=== PATIENT | male | born 1955 | race Caucasian/White ===

== ENCOUNTER → 2018-05-10 11:12 | Outpatient (CLI) | payer BC, SELFPAY ==
--- NOTE | 2018-05-10 11:16 | VDLE_ITS ---
Reason For Study: BLE edema L>R RIGHT LEFT GSV is normal. GSV is normal. CFV is compressible, spontaneous, phasic, CFV is compressible, spontaneous, phasic, competent and demonstrates normal competent, and demonstrates normal augmentation. augmentation. FV is compressible, spontaneous, phasic, FV is compressible, spontaneous, phasic, competent and demonstrates normal competent and demonstrates normal augmentation. augmentation. POP V is compressible, spontaneous, phasic, POP V is compressible, spontaneous, phasic, competent and demonstrates normal competent and demonstrates normal augmentation. augmentation. T/P Trunk is compressible. T/P Trunk is compressible. PTV is compressible. PTV is compressible. RT PerV is compressible. LT PerV is compressible. Procedure Exam performed in department. The exam was diagnostic. A preliminary report was called and/or faxed to DR. Alegria @ [phone] @ 11:40 am. Interpretation Summary Deep veins of the lower extremities are bilaterally patent and compressible segmentally. There is no evidence of deep vein thrombosis on either side. Valvular competence appears intact within the proximal deep venous systems bilaterally. The greater saphenous veins appear bilaterally patent and compressible segmentally. Ordering Physician: Efrain Alegria Referring Physician: Efrain Alegria Performed By: Kath Montiel, NATALIECS, RVT
== END ==
PROVIDERS: Family Provider Family Medicine; PCP Family Medicine; Visit Provider Family Medicine
DX: R60.0 Localized edema (principal)
CPT/HCPCS: 93970

== ENCOUNTER → 2018-10-09 09:22 | Outpatient (CLI) | payer BC, SELFPAY ==
--- NOTE | 2018-10-09 09:25 | US_ITS ---
STUDY: RENAL ULTRASOUND - COMPLETE REASON FOR EXAM: Male, 63 years old. TECHNIQUE: Ultrasound evaluation of the kidneys was performed with real-time and static stephenson-scale imaging. COMPARISON: None. FINDINGS: RIGHT KIDNEY: Normal location of the right kidney, which is normal in size. The right kidney measures 11.1 x 6.1 x 5.8 cm. There is a normal cortex of the right kidney. The renal cortex measures 1.6 cm. There is no right renal mass but there is 3.5 x 2.9 x 3.3 cm cyst involving the inferior medial aspect. There are no right renal calculi. There is no right hydronephrosis. DISTAL RIGHT URETER: There is non-visualization of the distal right ureter. There is no demonstrated right ureterovesical junction calculus. There is a visualized right ureteral jet. LEFT KIDNEY: Normal location of the left kidney, which is normal in size. The left kidney measures 11.1 x 6.4 x 5.7 cm. There is a normal cortex of the left kidney. The renal cortex measures 1.7 cm. There is no left renal mass or cyst. There are no left renal calculi. There is no left hydronephrosis. DISTAL LEFT URETER: There is non-visualization of the distal left ureter. There is no demonstrated left ureterovesical junction calculus. There is a visualized left ureteral jet. AORTA: There is no elongation or tortuosity of the abdominal aorta. Aorta measures: Proximal cm. Middle cm. Distal cm. Aorta measure transversely: Proximal cm. Middle cm. Distal cm. There is no demonstrated aneurysm.. I.V.C.: The IVC is patent. BLADDER: The distended urinary bladder has a volume of 111 ml. The empty urinary bladder has a volume of ml. There is a normal wall thickness of the distended urinary bladder. The process is enlarged causing indentation of the floor of the urinary bladder. US/Kidney and Bladder IMPRESSION: Negative ultrasound of the abdomen except for small cyst in the right kidney and enlarged prostate. Electronically Signed: Hilda Pool, at 16:18 EST Tel , Service support ,
--- NOTE | 2018-10-09 10:10 | RAD_ITS ---
STUDY: X-RAY - LUMBAR SPINE REASON FOR EXAM: Male, 63 years old. TECHNIQUE: 6 view(s) of the lumbar spine were obtained. COMPARISON: None FINDINGS: The vertebral bodies are of normal height with is straightening of the normal lumbar lordosis. The disc space between L1-2 is maintained. There is mild narrowing at the level of L2-3 with anterior osteophyte formation. There is markedly narrowing of the intervertebral disc at L3-4 with slight retrolisthesis of L3 on L4. With osteophyte formation seen at this level. There is narrowing at L4-5 level. There are disc space at L5-S1 is maintained. The spinous and transverse processes as well as the pedicles are intact. RAD/L/S Spine Min 4 Views IMPRESSION: Straightening of the lumbar lordosis with degenerative disc disease and narrowing at the levels described above with retrolisthesis of L3 on L4. Electronically Signed: Hilda Pool, at 15:56 EST Tel , Service support ,
== END ==
PROVIDERS: Family Provider Internal Medicine; PCP Internal Medicine; Referring Provider Internal Medicine; Visit Provider Internal Medicine
DX: N28.1 Cyst of kidney, acquired (principal); N40.0 Benign prostatic hyperplasia without lower urinary tract symptoms; R31.9 Hematuria, unspecified; M51.36 Other intervertebral disc degeneration, lumbar region
CPT/HCPCS: 72110; 76770

== ENCOUNTER → 2018-12-02 12:36 | Outpatient (CLI) | payer SELFPAY ==
--- NOTE | 2018-12-02 12:39 | CT_ITS ---
STUDY: CT CHEST WITHOUT CONTRAST REASON FOR EXAM: Male, 63 years old. Calcium scoring examination. Radiology over read examination. RADIATION DOSAGE (If Supplied By Facility): CTDIvol = ( 12.19 ) mGy, DLP = ( 292.55 ) mGycm TECHNIQUE: Transaxial imaging was performed without the administration of intravenous contrast material. Individualized dose optimization techniques were used for this CT. COMPARISON: Comparison is made with prior study dated August 19, 2015. FINDINGS: A left-sided pacemaker is seen. The lungs are normal. There is no demonstrated pleural abnormality. There are calcifications of the coronary arteries. There are multiple small lymph nodes within the mediastinum, which are normal in size and morphology most compatible with reactive lymph hyperplasia. Normal hilar regions. Normal unenhanced pulmonary arteries. There is atherosclerotic calcification of the aortic arch aortic arch . Normal osseous structures. There is no demonstrated abnormality of the visualized upper abdomen. CT/Limited Chest CT w/CCTA IMPRESSION: Coronary artery calcification. Electronically Signed: Rich Milton MD at 14:32 EST , Service support ,
[2018-12-02 13:08] VITALS: PULSE 54; RESP 16; O2SAT 100; BMI 33.3
--- NOTE | 2018-12-02 15:20 | CA.SCORE ---
Calcium Scoring Date of Study:: 12/02/18 Coronary Calcium Scoring: Coronary calcium score. Procedure: High-resolution computed tomographic imaging of the chest was performed on 12/02/2018 with particular attention paid to the coronary arteries. Images from the examination were analyzed for the presence and extent of coronary artery calcification using the coronary calcium quantification software. The patient tolerated the procedure well there were no complications. The results of the coronary consultation analysis are provided below. Coronary artery Left main score 5.5 Left anterior descending artery score 0 Left circumflex artery score 18 Right coronary artery score 13 Total Agatston score 37 The above places the patient between the 25th and 50th percentile ranking for his age and sex. Interpretation: The above is suggestive of mild plaque burden indicating mild or minimal coronary artery stenosis.
== END ==
PROVIDERS: Family Provider Internal Medicine; PCP Internal Medicine; Referring Provider Internal Medicine; Visit Provider Internal Medicine
DX: E78.5 Hyperlipidemia, unspecified (principal); Z82.49 Family history of ischemic heart disease and other diseases of the circulatory system
CPT/HCPCS: 75571; 76380

== ENCOUNTER → 2018-12-11 12:46 | Outpatient (CLI) | payer BC, SELFPAY ==
[2018-12-02 13:08] VITALS: BMI 33.3
--- NOTE | 2018-12-11 12:57 | ECHOCS_ITS ---
Reason For Study: Murmur Procedure This was a 2D Doppler, Color Flow transthoracic echocardiogram. Exam performed in department. Left Ventricle Normal size and thickness. The estimated ejection fraction is 60 %. Normal diastology for age. No regional wall motion abnormalities noted. Right Ventricle Mildly dilated right ventricle. Normal systolic function. Atria The left atrium is moderately enlarged. The right atrium is moderately enlarged. Normal atrial septum. Mitral Valve Mild focal mitral valve thickening. Moderate (2+) anteriorly directed mitral valve insufficiency. Tricuspid Valve Normal tricuspid valve. Trivial tricuspid valve insufficiency. Right ventricular systolic pressure estimated to be 29 mmHg. Aortic Valve Normal aortic valve. Trisinus/trileaflet aortic valve. Pulmonic Valve Normal pulmonic valve. Great Vessels Normal aortic root. Normal arch. Normal inferior vena cava. Inferior vena cava collapse with sniff. Pericardium/Pleural No pericardial effusion. Medication 22 gauge I.V. with prn adaptor inserted into right arm. Diluted definity 4ml given slow IV push to enhance endocardial definition. MMode/2D Measurements & Calculations LVIDd: 6.0 cm IVSd: 1.3 cm Ao root diam: 3.8 cm LVIDs: 4.7 cm LVPWd: 1.1 cm LA dimension: 4.4 cm RVDd: 3.8 cm FS: 21.1 % LAV(MOD-bp): 100.7 ml LA A4 area: 29.5 cm2 RA A4 area: 22.1 cm2 LAV(MOD-bp) Indexed: 40.6 ml/m2 LAV(MOD-sp2): 92.7 ml LAV(MOD-sp4): 102.0 ml Time Measurements MV dec time: 0.24 sec Doppler Measurements & Calculations MV E max jourdan: 97.3 cm/sec Lat Peak E' Jourdan: 13.1 cm/sec Med Peak E' Jourdan: 6.9 cm/sec MV A max jourdan: 61.2 cm/sec E/E' lat: 7.4 E/E' med: 14.1 MV E/A: 1.6 MV V2 max: 120.4 cm/sec MV P1/2t max jourdan: 117.5 cm/sec Ao V2 max: 132.0 cm/sec MV max P.8 mmHg MV P1/2t: 123.1 msec Ao max P.0 mmHg MV V2 mean: 60.7 cm/sec MV dec slope: 279.6 cm/sec2 Ao V2 mean: 86.2 cm/sec MV mean P.8 mmHg Ao mean P.4 mmHg MV V2 VTI: 43.0 cm MVA(P1/2t): 1.8 cm2 Ao V2 VTI: 26.6 cm LV V1 max: 76.0 cm/sec MR max jourdan: 547.0 cm/sec PA V2 max: 83.8 cm/sec LV V1 max P.3 mmHg MR max P.7 mmHg LV V1 mean P.91 mmHg MR mean jourdan: 427.5 cm/sec LV V1 mean: 42.8 cm/sec MR mean P.6 mmHg LV V1 VTI: 17.4 cm MR VTI: 181.1 cm TR max jourdan: 243.1 cm/sec TR max P.6 mmHg Interpretation Summary The estimated ejection fraction is 60 %. Normal diastology for age. The left atrium is moderately enlarged. The right atrium is moderately enlarged. Moderate (2+) anteriorly directed mitral valve insufficiency. Trivial tricuspid valve insufficiency. Right ventricular systolic pressure estimated to be 29 mmHg. Compared to echo report dated 02/27/2008, LV function has remained the same. RV is now mildly dilated. The study was technically difficult. Contrast injection was performed. Ordering Physician: Rachelle Morejon Referring Physician: Rachelle Morejon Performed By: Allan Damon RCS
== END ==
PROVIDERS: Family Provider Internal Medicine; PCP Internal Medicine; Referring Provider Internal Medicine; Visit Provider Internal Medicine
DX: R01.1 Cardiac murmur, unspecified (principal)
CPT/HCPCS: 93306; Q9957; A4216; C8929

== ENCOUNTER → 2018-12-30 08:51 | Outpatient (CLI) | payer BC, SELFPAY ==
[2018-12-24 08:38] VITALS: BMI 33.8
[2018-12-30 10:02] LABS: AST(SGOT) 19 U/L (15-37); Alanine Aminotransfer ALT/SGPT 22 U/L (16-61); Albumin, Serum 3.7 g/dL (3.2-5.0); Alkaline Phosphatase 83 U/L (45-117); Bilirubin, Direct 0.15 mg/dL (0.00-0.30); Cholesterol 121 mg/dL (200); High Density Lipoprotein 42 mg/dL; Protein, Total 6.7 g/dL (6.4-8.2); Triglycerides 95 mg/dL; Very Low Density Lipoprotein 19 mg/dL (5-40)
== END ==
PROVIDERS: Family Provider Internal Medicine; PCP Internal Medicine; Referring Provider Internal Medicine Cardiovascular Disease; Visit Provider Internal Medicine Cardiovascular Disease
DX: E78.5 Hyperlipidemia, unspecified (principal); R79.82 Elevated C-reactive protein (CRP); R93.1 Abnormal findings on diagnostic imaging of heart and coronary circulation
CPT/HCPCS: 36415; 80061; 80076

== ENCOUNTER → 2019-02-05 11:42 | Outpatient (CLI) | payer BC, SELFPAY ==
[2018-12-24 08:38] VITALS: BMI 33.8
--- NOTE | 2019-02-05 12:26 | STRESSREP ---
Stress Test Report Treadmill EKG summary: Resting EKG: Normal sinus rhythm, PVC, normal axis, normal intervals, no evidence of previous myocardial infarction. Treadmill EKG: The patient exercise according to a Chapo protocol for 9 minutes and 0 seconds achieving a maximum workload of 10.10 METS. Resting heart rate was initially 57 beats a minute and leandra to maximum 1 5 0 bpm which represents 96% of the maximal age-predicted heart rate. Resting blood pressure was 140/80 and leandra to maximum 180/72. Test was terminated due to leg discomfort. During exercise the patient's heart rate increased as expected. The patient had no dynamic EKG changes to suggest ischemia. Patient had rare PVCs noted. Conclusions: Normal, adequate, treadmill EKG. Negative for ischemia by EKG criteria. No anginal symptoms noted. Appropriate blood pressure response to exercise. Rare PVCs noted during recovery. Patient tolerated the procedure well. No complications.
== END ==
PROVIDERS: Family Provider Internal Medicine; PCP Internal Medicine; Referring Provider Internal Medicine Cardiovascular Disease; Visit Provider Internal Medicine Cardiovascular Disease
DX: I51.7 Cardiomegaly (principal); E78.5 Hyperlipidemia, unspecified; R79.82 Elevated C-reactive protein (CRP); Z86.718 Personal history of other venous thrombosis and embolism; Z86.79 Personal history of other diseases of the circulatory system; Z82.49 Family history of ischemic heart disease and other diseases of the circulatory system
CPT/HCPCS: 93017

== ENCOUNTER → 2019-09-29 09:24 | Outpatient (CLI) | payer BC, SELFPAY ==
[2019-08-29 11:53] VITALS: BMI 33.8
[2019-09-29 11:47] LABS: AST(SGOT) 18 U/L (15-37); Alanine Aminotransfer ALT/SGPT 24 U/L (16-61); Albumin, Serum 3.6 g/dL (3.2-5.0); Alkaline Phosphatase 87 U/L (45-117); Bilirubin, Direct 0.13 mg/dL (0.00-0.30); Cholesterol 118 mg/dL (200); Globulin 3.3 g/dL (2.2-4.2); High Density Lipoprotein 47 mg/dL; Protein, Total 6.9 g/dL (6.4-8.2); Triglycerides 76 mg/dL; Very Low Density Lipoprotein 15 mg/dL (5-40)
== END ==
PROVIDERS: Family Provider Internal Medicine; PCP Internal Medicine; Referring Provider Internal Medicine Cardiovascular Disease; Visit Provider Internal Medicine Cardiovascular Disease
DX: E78.00 Pure hypercholesterolemia, unspecified (principal)
CPT/HCPCS: 36415; 80061; 80076

== ENCOUNTER 2020-06-26 21:24 | Inpatient (IN) | payer BC, MEDICARE, SELFPAY ==
[2019-08-29 11:53] VITALS: BMI 33.8
[2020-06-26 21:24] VITALS: BP 119/64; PULSE 122; RESP 18; TEMP 37.1; O2SAT 99; BMI 33.0
--- NOTE | 2020-06-26 21:28 | EKG12_ITS ---
Test Reason : PALPITATIONS Blood Pressure : / mmHG Vent. Rate : 124 BPM Atrial Rate : 288 BPM P-R Int : 000 ms QRS Dur : 090 ms QT Int : 304 ms P-R-T Axes : 000 018 010 degrees QTc Int : 436 ms Atrial flutter with variable A-V block Abnormal ECG When compared with ECG of 19-AUG-2015 12:57, Atrial flutter has replaced Sinus rhythm Vent. rate has increased BY 55 BPM Nonspecific T wave abnormality now evident in Lateral leads Confirmed by JONATHAN KAISER, NOEL ([id number]), newspaper copy editor EMIL GARZA ([id number]) on 07/13/2020 12:52:50 PM Referred By: Candie Downs Confirmed By:NOEL CASTILLO MD
[2020-06-26 21:34] VITALS: PULSE 129
--- NOTE | 2020-06-26 21:47 | RAD_ITS ---
STUDY: X-RAY CHEST REASON FOR EXAM: Male, 65 years old. mitral valve surgery 4 days ago, discharged today and Apple watch is telling him he has a high heart rate TECHNIQUE: Frontal view of the chest COMPARISON: August 19 2015 FINDINGS: There are sternotomy wires and mitral annular repair. The lungs are clear and expanded. There is no demonstrated pleural abnormality. Normal size heart. Normal mediastinum and hussain. Normal visualized pulmonary arteries. Normal visualized aortic arch and descending thoracic aorta. Normal visualized thoracic spine. Normal visualized ribs, clavicles, and shoulders. There is no demonstrated abnormality of the visualized soft tissue structures of the upper abdomen. RAD/Chest 1 View (Portable) IMPRESSION: No acute cardio pulmonary disease. Prior sternotomy. Electronically Signed: Emmanuelle Bear, at 22:21 EDT Tel , Service support ,
[2020-06-26] MEDS: dilTIAZem 25 MG/5 ML Vial 20 MG IV BOLUS (21:51)
[2020-06-26 21:52] VITALS: BP 113/96; PULSE 124; RESP 20; O2SAT 95
[2020-06-26 21:59] LABS: Absolute Neutrophil Count 4.7 X10^3/uL (2.0-7.7); Basophil# 0.02 X10^3/uL; Basophil% 0.3 % (0-1); Eosinophil# 0.18 X10^3/uL; Eosinophils% 2.7 % (0-5); Hematocrit 34.1 % (40-54); Hemoglobin 10.9 g/dL (13.0-16.5); Mean Corpuscular Hgb 26.7 pg (27.0-32.0); Mean Corpuscular Volume 83.6 fL (80-94); Mean Platelet Vol. 9.6 fl (6.2-12.0); Monocyte# 0.57 X10^3/uL; Monocyte% 8.5 % (0-10); NRBC Flagged by Analyzer 0 % (0-5); Neutrophil # 4.69 X10^3/uL (2.7-7.7); Neutrophil % 70.2 % (47-70); Platelet Count 165 K/mm3 (150-450); RBC Distribution Width CV 13.8 % (11.6-14.6); RBC Distribution Width SD 42.4 fl (35.1-43.9); Red Blood Count 4.08 M/mm3 (4.6-6.2); White Blood Count 6.7 K/mm3 (4.4-11.0)
[2020-06-26 22:11] LABS: Anion Gap 5 (5-15); BUN 19 mg/dL (7-18); BUN/Creat Ratio 16.2 RATIO (10-20); Chloride 106 mmol/L (98-107); Creatinine, Serum 1.17 mg/dL (0.70-1.30); EST Glomerular Filtration Rate 66 mL/min (>60); Est Glom Filt Rate - Afr Amer 80 mL/min (>60); Estimated Creatinine Clearance 73.23 ml/min; Glucose 112 mg/dL (74-106); Potassium 4.2 mmol/L (3.5-5.1); Sodium Level 138 mmol/L (136-145)
--- NOTE | 2020-06-26 22:39 | ED.VISSUMM ---
- ER Visit Summary Date of Service: 06/26/20 Chief Complaint: Accelerated heart rate and palpitations History of Present Illness: The patient is a 65 M status post mitral valve repair open heart surgery done [facility] on Sunday. Patient was just discharged today. He was doing well and tonight when he was wearing his apple watch it alarmed showing him that his heart rate was 142. He said he was not feeling poorly. He denies any shortness of breath or hemoptysis. He has been getting what sounds like Lovenox shots. He does have a history of prior mitral valve regurg which he had repaired earlier this week. Hypertension, high cholesterol and prior pulmonary emboli. Physical Examination: Older male no acute distress heart rate 122. Pulse ox 99% on room air no signs hypoxia. H EENT exam unremarkable. Neck nontender no JVD. Lungs clear to auscultation bilaterally. Heart tachycardic rate in 120s. Appears to be atrial flutter on the monitor. No murmur. Well-healing sternotomy incision. Dry and clean. No cellulitis. No pus. Abdomen soft nontender normal bowel sounds no peritoneal signs. Remedies moves all 4. Neurovascular intact. Calves are nontender without edema or cords. Neurologically is awake and alert with no focal motor deficits. Test Results: Chest x-ray shows a recent sternotomy. Otherwise no acute process. Heart is not significantly enlarged. There is no effusions nor CHF. KG is consistent with atrial flutter rate of about 124. No signs of UT or ischemia. CBC shows a white count of 6. Hemoglobin 10.9. Consistent with her recent surgery. Chemistries unremarkable normal creatinine and gap. Troponin is elevated at 0.926 however again he just had open heart surgery 4 days ago. I would expect his troponin is still be elevated. Emergency Department Course and Treatment: Patient with new onset atrial flutter status post recent sternotomy and mitral valve repair. Given 1 dose of Cardizem IV currently his heart rate is still atrial flutter but rate 73. He is resting comfortably. Treatment Plan: I have the clinic clinic on page discussed the patient's treatment. I think can be safely kept here overnight observed medicated and evaluated for new onset postop atrial flutter. As long as the [facility] is comfortable with that plan I will speak to the [facility] hospitalist. Disposition: Admission Impression: New onset atrial flutter with rapid ventricular rate Status post recent sternotomy for mitral valve repair surgery 4 days ago. History of hypertension, high cholesterol and prior pulmonary emboli. This note was generated with [employer] dictation software. It may contain incorrect words, spelling, and punctuation that were not noted in review of the chart prior to signing ED Disposition - Plan for ED Patient: Referrals: Rachelle Morejon MD [Primary Care Provider] -
[2020-06-26 22:51] VITALS: BP 106/59; PULSE 88; RESP 21; O2SAT 95
--- NOTE | 2020-06-26 23:15 | PCM.HP.STD ---
Problem List (1) Atrial flutter with rapid ventricular response Status: Acute (2) History of mitral valve repair Status: Chronic (3) Personal history of pulmonary embolism Status: Chronic (4) Personal history of other venous thrombosis and embolism Status: Chronic (5) History of hypertension Status: Chronic Comment: Improved with diet and exercise, currently on no meds per Dr. Morejon OV 11/21/2018 (6) Hyperlipidemia Status: Chronic Qualifiers: Hyperlipidemia type: unspecified Qualified Code(s): E78.5 - Hyperlipidemia, unspecified History of Present Illness Date of Admission: 06/26/20 Chief Complaint: Irregular heart rate, tachycardia, asymptomatic The patient is a 65 y/o M w/ PMHx: Asthma not on regimen, Valvular heart disease s/p MVR, Lifestyle/diet controlled HTN, Hx PE, HLD, Allergic rhinitis who presents to the [facility] ED on 06/26/20 with history of recent mitral valve surgery Sunday prior to current presentation with discharge today from [facility] with ongoing tachycardia per his watch (started 8:07 pm) with no symptoms associated prompting eventual ED presentation for evaluation. In the ED following cardizem bolus patient HR 70-120. He notes feeling asymptomatic still. He notes his normal resting heart rate is 50-60, occasionally 40s while sleeping. He notes recent ECHO following recent MVR at [facility]. He denies any post-operative issues. Work-up in the ED included T 98.8, heart rate 122, BP 119/64, respiratory rate 18, 99% on room air, CBC with WBC 6.7, hemoglobin 10.9, platelet 165 with no market shift, BMP with BUN/creatinine 19/1.17, glucose 112, troponin 0.926, chest x-ray with no acute cardiopulmonary findings with prior sternotomy, EKG with atrial flutter with RVR. In the ED patient ministered Cardizem 20 mg IV x1. ED discussed case with [facility] CT Surgery who was amenable to his remaining at [facility]. Dr. Duque, [facility] Cardiology was also contacted per ED and case reviewed. Past Medical History Past Medical History (Chronic Problems): Chronic Problems (Last Reviewed 08/20/19 @ 16:01 by Geetha Busch) History of mitral valve repair (Chronic) Personal history of pulmonary embolism (Chronic 02/25/08) Right ventricular hypertrophy (Chronic) Per echo 12/11/2018 Bilateral enlargement of atria (Chronic) Nonrheumatic mitral (valve) insufficiency (Chronic) Moderate (2+) per echo 12/11/2018. EF 60%.RVSP 29mm hg. Personal history of other venous thrombosis and embolism (Chronic 02/25/08) History of hypertension (Chronic) Improved with diet and exercise, currently on no meds per Dr. Morejon OV 11/21/2018 Hyperlipidemia (Chronic) Medical History: Medical History (Last Reviewed 08/20/19 @ 16:01 by Geetha Busch) Elevated coronary artery calcium score (Acute) R93.1 Agatson score 37. Calcified coronaries also noted on chest CTA done 12/02/18, ord by Dr. Morejon. Personal history of pulmonary embolism (Chronic) Onset Date: 02/25/08 Z86.711 Right ventricular hypertrophy (Chronic) I51.7 Per echo 12/11/2018 Bilateral enlargement of atria (Chronic) I51.7 Nonrheumatic mitral (valve) insufficiency (Chronic) I34.0 Moderate (2+) per echo 12/11/2018. EF 60%.RVSP 29mm hg. Elevated C-reactive protein (CRP) (Acute) R79.82 Personal history of other venous thrombosis and embolism (Chronic) Onset Date: 02/25/08 Z86.718 History of hypertension (Chronic) Z86.79 Improved with diet and exercise, currently on no meds per Dr. Morejon OV 11/21/2018 Hyperlipidemia (Chronic) E78.5 Enlarged prostate N40.0 Hematuria R31.9 Allergic rhinitis J30.9 Low back pain M54.5 Allergies No Known Allergies Allergy (Verified 06/26/20 21:28) Home Medications: Ambulatory Orders Medication Instructions Recorded aspirin 81 mg tablet,delayed 81 mg PO DAILY 12/18/18 release aqetfntq-mtx-xxkhd acid 0.4 1 tab PO DAILY 12/18/18 mg-lycopene 300 mcg-lutein 250 mcg tablet probiotic PO DAILY 12/18/18 zinc 50 mg tablet 50 mg PO DAILY 12/18/18 ergocalciferol (vitamin D2) 62.5 1,000 unit PO DAILY 12/24/18 mcg (2,500 unit) capsule rivaroxaban 20 mg tablet 20 mg PO .COMPLEX #30 tab 12/24/18 Ramipril 5 mg PO DAILY 06/26/20 Rosuvastatin Calcium 10 mg PO QHS 06/26/20 Surgical History: Surgical History (Last Updated 08/29/19 @ 12:00 by Geetha Busch) History of tooth extraction K08.409 Surgical History: - - Dental surgery, recent Mitral Valve Repair. Psychiatric History: No pertinent psych hx Lives: Spouse/ Significant Other Smoking Status: Never smoker Tobacco Use: Secondhand - Noted both his parents smoked heavily. Alcohol: Occasional Drugs: None - *Family History Maternal Family History: Family History (Last Reviewed 08/20/19 @ 16:01 by Geetha Busch) Brother Thyroid disorder Brother Thyroid disorder Mother Thyroid disorder Ovarian cancer Lung cancer Sister Thyroid disorder Father Lung cancer Prostate cancer CAD (coronary artery disease), Onset Age: 50 History Items: Cancer - Lung CA, tobacco use., Pulmonary Disease Paternal Family History: Family History (Last Reviewed 08/20/19 @ 16:01 by Geetha Busch) Brother Thyroid disorder Brother Thyroid disorder Mother Thyroid disorder Ovarian cancer Lung cancer Sister Thyroid disorder Father Lung cancer Prostate cancer CAD (coronary artery disease), Onset Age: 50 History Items: Cancer - Lung and Prostate CA., Heart Disease, - Review of Systems Constitutional: Reports: Fatigue. Denies: Anorexia, Chills, Fever, Malaise, Weakness, Weight Change HEENT: Denies: Head Aches, Sinus Congestion, Sinus Drainage Cardiovascular: Reports: - - Apple Watch noted tachycardia. Denies: Chest Pain, Chest Pressure, Chest Tightness, Edema, Heaviness, Light Headedness, Orthopnea, Palpitations, Syncope Respiratory: Denies: Cough, Shortness of breath at rest, Sputum production Gastrointestinal: Denies: Abdominal Pain, Nausea, Vomiting Genitourinary: Denies: Dysuria Musculoskeletal: Denies: Joint Pain, Joint Tenderness Skin: Denies: Rash, Wounds Neurological: Denies: Numbness, Tingling, Focal weakness Psychiatric: Denies: Anxiety, Depression, Homicidal Ideations, Suicidal Ideations Hematologic/ Lymphatic: Denies: Easy Bruising, Easy Bleeding VTE Information - Inpt Only VTE Present on Admission: No VTE Mechan Device Prophylaxis: SCD's VTE Pharm Prophylaxis ordered?: Yes Patient Problems: Active and Suspected Problems (Last Reviewed 08/20/19 @ 16:01 by Geetha A Jo-Ann) Atrial flutter with rapid ventricular response (Acute) Subjective: Seated upright in ED bed, no acute distress, continues to be asymptomatic, rate mildly improved with Cardizem bolus but fluctuating. Objective: Physical Examination: General: awake, alert, oriented x 3 and cooperative, seated upright in the ED bed, no acute distress. Skin: normal color, turgor, no icterus, cyanosis except recent midline sternotomy incision, healing as well as lower distal chest tube incisions. HEENT: AT/NC, EOMI, PERRLA, MMM, no carotid bruits or JVD noted. Lungs: CTA bilaterally, moderate effort, mild decrease BL bases, no rales, ronchi or wheezing. Heart: Irregular irregular; no gallop, rub audible, see skin. Abdomen: soft, NTTP, ND, normal BS, no HSM. Extremities: no cyanosis, clubbing, or edema. Neurological: patient awake, alert, oriented x 3; cognitive function intact; pupils equally reactive to light and accomodation; cranial nerves II-XII grossly normal, moving all 4 extremities, no focal deficits, strength moderately global decrease secondary to recent interventions and acute presentation. Psychiatric: affect appears normal, no acute evidence of depressive or anxiety feelings. - Physical Exam Vitals/I&O's: Vital Signs Temp Pulse Resp BP Pulse Ox 98.8 F 88 21 H 106/59 L 95 06/26/20 21:24 06/26/20 22:51 06/26/20 22:51 06/26/20 22:51 06/26/20 22:51 Oxygen Delivery Method Room Air Weight: 264 lb 8.875 oz Body Mass Index (BMI) 33.0 Laboratory Results 06/26/20 21:42: WBC 6.7, RBC 4.08 L, Hgb 10.9 L, Hct 34.1 L, MCV 83.6, MCH 26.7 L, MCHC 32.0, RDW Std Deviation 42.4, RDW Coeff of Gayathri 13.8, Plt Count 165, MPV 9.6, Immature Gran % (Auto) 0.300, Neut % (Auto) 70.2 H, Lymph % (Auto) 18.0 L, [place] % (Auto) 8.5, Eos % (Auto) 2.7, Baso % (Auto) 0.3, Absolute Neuts (auto) 4.7, Absolute Lymphs (auto) 1.20, Nucleated RBC % 0 06/26/20 21:42: Sodium 138, Potassium 4.2, Chloride 106, Carbon Dioxide 27.0, Anion Gap 5, BUN 19 H, Creatinine 1.17, Estim Creat Clear Calc 73.23, Est GFR (MDRD) Af Amer 80, Est GFR (MDRD) Non-Af 66, BUN/Creatinine Ratio 16.2, Glucose 112 H, Calcium 9.0, Troponin I 0.926 H* Assessment/Plan All Active Problems (Last Reviewed 08/20/19 @ 16:01 by Geetha Busch) Atrial flutter with rapid ventricular response (Acute) Elevated coronary artery calcium score (Acute) Elevated C-reactive protein (CRP) (Acute) The patient is a 65 y/o M w/ PMHx: Asthma not on regimen, Valvular heart disease s/p MVR, Lifestyle/diet controlled HTN, Hx PE, HLD, Allergic rhinitis who presents to the [facility] ED on 06/26/20 with history of recent mitral valve surgery Sunday prior to current presentation with discharge today from [facility] with ongoing tachycardia per his watch with no symptoms associated prompting eventual ED presentation for evaluation. 1. New onset, Paroxsymal atrial flutter with RVR with elevated indeterminate troponin with recent open heart surgery: EKG in ED w/ atrial flutter w/ RVR. Patient administered Cardizem IV bolus in ED. Will admit to PCU, maintain on telemetry, obtain cardiac enzyme serial set, obtain magnesium level, will maintain on therapeutic lovenox, continue Cardizem drip given history of notable bradycardia given if patient converts high dose oral regimen may cause significant worsened bradycardia. Cardiology consulted per ED upon admission, pending evaluation. 2. Valvular heart disease: Status post recent mitral valve repair at [facility] with discharge on day of ED presentation secondary to asymptomatic tachycardia noted on his wristwatch. ED discussed case with [facility] surgeon who was amenable to patient remaining at [facility] for evaluation. 3. Hypertension: Given low normal BP with usage cardizem will hold ACEI, maintained on IV Cardizem drip currently, PRN IV hydralazine. 4. Hyperlipidemia: Continue home statin regimen. 5. History of asthma: Not on any regimen, encourage I-S, PRN albuterol. 6. History of pulmonary emboli: We will continue patient on therapeutic lovenox as noted. 7. DVT prophylaxis: SCDs, therapeutic lovenox which was cleared per his CT surgery. 8. CODE status: Patient GEORGIE is his was present and living will is currently in place. Discussed CODE status at length including difference between FULL code, DNR-CCA and DNR-CC status. Following discussions about the differences in these status, requested full CODE STATUS. Advanced Care Planning Face to Face Time: 16 minutes. Inpatient E&M: 59637 Init Hosp L3 Procedures: 89339 Advncd Care Plan 30 Min
[2020-06-27] VITALS (27 sets, daily range): BP systolic 105–163; BP diastolic 52–118; PULSE 55–123; RESP 11–24; TEMP 36.6–36.9; O2SAT 93–100; BMI 33.5
[2020-06-27] MEDS: Enoxaparin 120 MG/0.8 ML Syringe SC (00:50)
[2020-06-27 03:55] LABS: Absolute Lymphocyte Count 1.37 X10^3/uL (0.83-4.51); Absolute Neutrophil Count 3.8 X10^3/uL (2.0-7.7); Basophil# 0.03 X10^3/uL; Basophil% 0.5 % (0-1); Eosinophil# 0.22 X10^3/uL; Eosinophils% 3.7 % (0-5); Hematocrit 31.6 % (40-54); Hemoglobin 10.1 g/dL (13.0-16.5); Lymphocyte # 1.37 X10^3/ul (4.0); Mean Corpuscular Hgb 26.9 pg (27.0-32.0); Mean Platelet Vol. 8.9 fl (6.2-12.0); Monocyte# 0.55 X10^3/uL; Monocyte% 9.2 % (0-10); NRBC Flagged by Analyzer 0 % (0-5); Neutrophil # 3.76 X10^3/uL (2.7-7.7); Neutrophil % 63.1 % (47-70); Platelet Count 143 K/mm3 (150-450); RBC Distribution Width CV 13.7 % (11.6-14.6); RBC Distribution Width SD 42.4 fl (35.1-43.9); Red Blood Count 3.76 M/mm3 (4.6-6.2)
[2020-06-27 04:20] LABS: ALB/GLOB Ratio 0.8 RATIO (0.9-2.4); AST(SGOT) 30 U/L (15-37); Alanine Aminotransfer ALT/SGPT 40 U/L (16-61); Albumin, Serum 2.7 g/dL (3.2-5.0); Alkaline Phosphatase 60 U/L (45-117); Anion Gap 5 (5-15); BUN 17 mg/dL (7-18); BUN/Creat Ratio 15.6 RATIO (10-20); Calcium,Total 8.6 mg/dL (8.5-10.1); Chloride 105 mmol/L (98-107); Creatinine, Serum 1.09 mg/dL (0.70-1.30); EST Glomerular Filtration Rate 72 mL/min (>60); Est Glom Filt Rate - Afr Amer 87 mL/min (>60); Globulin 3.5 g/dL (2.2-4.2); Glucose 117 mg/dL (74-106); Potassium 3.8 mmol/L (3.5-5.1); Protein, Total 6.2 g/dL (6.4-8.2); Sodium Level 138 mmol/L (136-145)
--- NOTE | 2020-06-27 05:55 | EKG12_ITS ---
Test Reason : ARRYTHMIA Blood Pressure : / mmHG Vent. Rate : 061 BPM Atrial Rate : 061 BPM P-R Int : 152 ms QRS Dur : 090 ms QT Int : 382 ms P-R-T Axes : -53 021 005 degrees QTc Int : 384 ms Possible Ectopic Atrial Rhythm Nonspecific ST and T wave abnormality Abnormal ECG When compared with ECG of 27-JUN-2020 05:00, MANUAL COMPARISON REQUIRED, DATA IS UNCONFIRMED Confirmed by JONATHAN KAISER, NOEL ([id number]), order editor EMIL GARZA ([id number]) on 06/30/2020 11:41:02 AM Referred By: Candie Downs Confirmed By:NOEL CASTILLO MD
--- NOTE | 2020-06-27 08:55 | EKG12_ITS ---
Test Reason : AM EKG Blood Pressure : / mmHG Vent. Rate : 080 BPM Atrial Rate : 384 BPM P-R Int : 000 ms QRS Dur : 088 ms QT Int : 354 ms P-R-T Axes : 000 025 -08 degrees QTc Int : 408 ms Atrial flutter with variable A-V block Nonspecific T wave abnormality Abnormal ECG Confirmed by JONATHAN KAISER, NOEL ([id number]), editor dictionary EMIL GARZA ([id number]) on 06/30/2020 11:41:20 AM Referred By: Candie Downs Confirmed By:NOEL CASTILLO MD
[2020-06-27] MEDS: Aspirin E.C. 81 MG Tablet PO (09:20)
--- NOTE | 2020-06-27 10:39 | PCM.CONS.C ---
Problem List (1) Atrial flutter with rapid ventricular response Status: Acute (2) History of mitral valve repair Status: Chronic (3) Personal history of pulmonary embolism Status: Chronic (4) Nonrheumatic mitral (valve) insufficiency Status: Chronic Comment: Moderate (2+) per echo 12/11/2018. EF 60%.RVSP 29mm hg. Reason for Consult Date of Consultation: 06/27/20 Reason for Consultation: Paroxysmal atrial fibrillation post mitral valve repair History of Present Illness: The patient is a 65 year old M [was admitted through the emergency room last night because of asymptomatic atrial fibrillation with fast ventricular rate. His apple watch alerted him of heart rate in the 140. 5 days ago, patient underwent mitral valve repair at the [facility] and was discharged home 2 days ago. His cardiac history dated 3 months ago. At that time he notices that he gets short of breath on minimal exertion of sudden onset. Echocardiogram according to the patient at the [facility] showed 4+ mitral regurgitation with torn chordae. Cardiac catheterization showed insignificant coronary artery disease. He is known to have hypertension and hyperlipidemia. He is a non-smoker and drinks occasionally. He did have a history of pulmonary embolism in the past. He has been taking Xarelto prophylactically during traveling. At the moment he is only taking aspirin postoperatively. At around 9 AM this morning patient converted to normal sinus rhythm. He is still on IV Cardizem, heart rate in the 60s with occasional PVCs] Past Medical History Allergies/Adverse Reactions: Allergies No Known Allergies Allergy (Verified 06/26/20 21:28) Home Medications: Ambulatory Orders Medication Instructions Recorded aspirin 81 mg tablet,delayed 81 mg PO DAILY 12/18/18 release nmgmotdu-ntx-mkevc acid 0.4 1 tab PO DAILY 12/18/18 mg-lycopene 300 mcg-lutein 250 mcg tablet probiotic PO DAILY 12/18/18 zinc 50 mg tablet 50 mg PO DAILY 12/18/18 ergocalciferol (vitamin D2) 62.5 1,000 unit PO DAILY 12/24/18 mcg (2,500 unit) capsule rivaroxaban 20 mg tablet 20 mg PO .COMPLEX #30 tab 12/24/18 Ramipril 5 mg PO DAILY 06/26/20 Rosuvastatin Calcium 10 mg PO QHS 06/26/20 Past Medical History (Chronic Problems): Chronic Problems (Last Reviewed 08/20/19 @ 16:01 by Geetha Busch) History of mitral valve repair (Chronic) Personal history of pulmonary embolism (Chronic 02/25/08) Right ventricular hypertrophy (Chronic) Per echo 12/11/2018 Bilateral enlargement of atria (Chronic) Nonrheumatic mitral (valve) insufficiency (Chronic) Moderate (2+) per echo 12/11/2018. EF 60%.RVSP 29mm hg. Personal history of other venous thrombosis and embolism (Chronic 02/25/08) History of hypertension (Chronic) Improved with diet and exercise, currently on no meds per Dr. Morejon OV 11/21/2018 Hyperlipidemia (Chronic) Surgical History: - - Dental surgery, recent Mitral Valve Repair. Psychiatric History: No pertinent psych hx - *Family History Maternal Family History: Family History (Last Reviewed 08/20/19 @ 16:01 by Geetha Busch) Brother Thyroid disorder Brother Thyroid disorder Mother Thyroid disorder Ovarian cancer Lung cancer Sister Thyroid disorder Father Lung cancer Prostate cancer CAD (coronary artery disease), Onset Age: 50 History Items: Cancer - Lung CA, tobacco use., Pulmonary Disease Paternal Family History: Family History (Last Reviewed 08/20/19 @ 16:01 by Geetha Busch) Brother Thyroid disorder Brother Thyroid disorder Mother Thyroid disorder Ovarian cancer Lung cancer Sister Thyroid disorder Father Lung cancer Prostate cancer CAD (coronary artery disease), Onset Age: 50 History Items: Cancer - Lung and Prostate CA., Heart Disease, - Lives: Spouse/ Significant Other Smoking Status: Never smoker Tobacco Use: Secondhand Alcohol: Occasional Drugs: None Review of Systems - Review of Systems Cardiovascular: Denies: Chest Discomfort, Shortness of Breath, Orthopnea, PND, Peripheral Edema, Palpitations, Lightheadedness, Dizziness, Near Syncope, Syncope Respiratory: Denies: Cough, Sputum Production, Hemoptysis Gastrointestinal: Denies: Hematemesis, Hematochezia, Melena Objective: Vital Signs Temp Pulse Resp BP Pulse Ox 98.2 F 60 19 H 138/56 H 96 06/27/20 06:00 06/27/20 10:00 06/27/20 10:00 06/27/20 10:00 06/27/20 10:00 Oxygen Delivery Method Room Air Weight: 267 lb 13.786 oz Body Mass Index (BMI) 33.5 Intake and Output for Last 24 Hours 06/25/20 06/26/20 06/27/20 23:59 23:59 23:59 Intake Total 87.33 / 87.33 Output Total 525 / 525 Balance -437.67 / -437.67 General: Healthy Appearing, No Acute Distress HEENT: Atraumatic Neck: Supple Chest Wall: - - Recent sternotomy for mitral valve repair Lungs: Clear to auscultation Cardiovascular: Regular Rhythm, Normal S1, Normal S2, No Murmurs, No Rubs, No Gallops Abdomen: Bowel Sounds Present, Soft, Non Tender, No HSM, No Organomegaly Extremities: No edema Musculoskeletal: - - Recent sternotomy Neurological: No Focal Motor or Sensory Deficit Psych/Mental Status: Appropriate, Normal Affect 06/26/20 21:42: WBC 6.7, RBC 4.08 L, Hgb 10.9 L, Hct 34.1 L, MCV 83.6, MCH 26.7 L, MCHC 32.0, Plt Count 165, MPV 9.6, Immature Gran % (Auto) 0.300, Neut % (Auto) 70.2 H, Lymph % (Auto) 18.0 L, [place] % (Auto) 8.5, Eos % (Auto) 2.7, Baso % (Auto) 0.3, Absolute Neuts (auto) 4.7, Nucleated RBC % 0 06/26/20 21:42: Sodium 138, Potassium 4.2, Chloride 106, Carbon Dioxide 27.0, Anion Gap 5, BUN 19 H, Creatinine 1.17, Est GFR (MDRD) Af Amer 80, Est GFR (MDRD) Non-Af 66, BUN/Creatinine Ratio 16.2, Glucose 112 H, Calcium 9.0, Troponin I 0.926 H* 06/27/20 00:45: Magnesium 2.0 06/27/20 00:45: Troponin I 0.885 H* 06/27/20 03:46: WBC 6.0, RBC 3.76 L, Hgb 10.1 L, Hct 31.6 L, MCV 84.0, MCH 26.9 L, MCHC 32.0, Plt Count 143 L, MPV 8.9, Immature Gran % (Auto) 0.500, Neut % (Auto) 63.1, Lymph % (Auto) 23.0, [place] % (Auto) 9.2, Eos % (Auto) 3.7, Baso % (Auto) 0.5, Absolute Neuts (auto) 3.8, Nucleated RBC % 0 06/27/20 03:46: Sodium 138, Potassium 3.8, Chloride 105, Carbon Dioxide 28.0, Anion Gap 5, BUN 17, Creatinine 1.09, Est GFR (MDRD) Af Amer 87, Est GFR (MDRD) Non-Af 72, BUN/Creatinine Ratio 15.6, Glucose 117 H, Calcium 8.6, Total Bilirubin 0.40 06/27/20 03:46: Troponin I 0.794 H* Rhythm: EKG: ECHO: Stress Test: Cardiac Cath: PCI: CT Surgery: Holter monitor: EPS: PPM: CXR: Chest CT Scan: Assessment/Plan Paroxysmal atrial fibrillation with fast ventricular rate, asymptomatic, post mitral valve repair 5 days ago with no CABG. Patient had history of pulmonary embolism in the past. His Lupillo Vascor is 3. I would recommend that he stays on Xarelto. At this point was sinus bradycardia I would not recommend beta-amirah or wfq-sdgob-bbnfnstp calcium amirah. From cardiac standpoint patient can be discharged. He claims that he will be followed by the [facility] cardiology department
--- NOTE | 2020-06-27 10:49 | DCINST_ITS ---
- Discharge Diagnoses Current Active Problems: Current Active and Chronic Problems (Last Updated 08/29/19 @ 12:00 by Geetha Busch) Atrial flutter with rapid ventricular response (Acute) History of mitral valve repair (Chronic) You will use the following diet at home:: Cardiac Discharge Activity: Return to Normal Activity Call your doctor if you observe: Shortness of breath, Dizziness, Fainting spells, Chest pain, Increased palpitations (irregular heartbeat) Allergies/Adverse Reactions: Allergies No Known Allergies Allergy (Verified 06/26/20 21:28) Medications to take at Discharge aspirin 81 mg tablet,delayed release 81 mg PO DAILY 12/18/18 ckleyprv-xjb-ncboi acid 0.4 mg-lycopene 300 mcg-lutein 250 mcg tablet 1 tab PO DAILY 12/18/18 probiotic PO DAILY 12/18/18 zinc 50 mg tablet 50 mg PO DAILY 12/18/18 ergocalciferol (vitamin D2) 62.5 mcg (2,500 unit) capsule 1,000 unit PO DAILY 12/24/18 Ramipril 5 mg PO DAILY 06/26/20 Rosuvastatin Calcium 10 mg PO QHS 06/26/20 Rivaroxaban [Xarelto] 20 mg PO DAILY #30 tab 06/27/20 The following prescriptions were given: Rivaroxaban [Xarelto] 20 mg PO DAILY #30 tab Transmission Status: Pending to [id number] Primary Care Physician: Rachelle Morejon MD [Primary Care Provider] - Please follow up with your Primary Care Physician in: 1 Week Test Results: Test results from this visit will be discussed in further detail at your follow- up appointment, if applicable. Please Follow Up With: Primary [employer]er/[facility] cardio surgery When: Within one week or as scheduled Proposed Discharge Date: 06/27/20
--- NOTE | 2020-06-27 10:51 | PCM.DC.SUM ---
<Eliza Aguila CONSTRUCTION INSPECTOR - Last Filed: 06/27/20 11:06> Discharge Date and Diagnosis Date of Admission: 06/26/20 Date of Discharge: 06/27/20 - Primary Discharge Diagnosis Acute Problems: Active Problems (Last Reviewed 08/20/19 @ 16:01 by Geetha Busch) 1. New onset atrial flutter with RVR 2. Recent mitral valve repair 06/22/2020 at [facility] 3. Hypertension 4. Hyperlipidemia 5. History of asthma 6. History of PE 7. Suspected MARCO - Secondary Discharge Diagnosis Chronic Problems: Chronic Problems (Last Reviewed 08/20/19 @ 16:01 by Geetha Busch) History of mitral valve repair (Chronic) Personal history of pulmonary embolism (Chronic 02/25/08) Right ventricular hypertrophy (Chronic) Per echo 12/11/2018 Bilateral enlargement of atria (Chronic) Nonrheumatic mitral (valve) insufficiency (Chronic) Moderate (2+) per echo 12/11/2018. EF 60%.RVSP 29mm hg. Personal history of other venous thrombosis and embolism (Chronic 02/25/08) History of hypertension (Chronic) Improved with diet and exercise, currently on no meds per Dr. Morejon OV 11/21/2018 Hyperlipidemia (Chronic) Hospital Course and Treatment Imaging Results: Diagnostic Data Chest X-Ray 06/26/20 21:47 IMPRESSION: No acute cardio pulmonary disease. Prior sternotomy. Electronically Signed: Emmanuelle Bear, at 22:21 EDT Tel , Service support , Dr. Pawel Duque- Cardiology Operations: None Procedures: None Summary of Care Provided: The patient is a 65 year old M admitted 06/26/2020 due to irregular heart rate. 1. New onset atrial flutter with RVR with abnormal troponin secondary to demand ischemia-patient was discharged from [facility] facility 06/26/2020 following mitral valve repair last Sunday. He reports surgery and recovery was uneventful. Patient was discharged home yesterday and his apple watch notified him of elevated heart rate. He reported associated shortness of breath. He spoke with his [facility] cardiology team who referred him to local ER for evaluation. He was placed on IV Cardizem drip and converted to normal sinus rhythm. Patient seen by cardiology during admission. Recommend Xarelto at discharge. Patient's heart rate 50-60 at baseline, therefore no beta-amirah or calcium channel amirah was initiated. Follow-up with [facility] cardiology within 1 week or as previously scheduled. 2. Recent mitral valve repair 06/22/2020 at [facility]-continue outpatient follow-up as noted above. 3. Hypertension-stable, continue ramipril regimen. 4. Hyperlipidemia-continue statin. 5. History of asthma-no exacerbation. 6. History of PE-previously on as needed Xarelto which he would take during long trips. Initiated on a daily Xarelto as noted above. 7. Suspected MARCO-patient reports significant snoring and intermittent apnea at night. Also reports his heart rate was noted to be intermittently low at nighttime while at [facility] facility. Recommend outpatient sleep study which can be arranged by PCP. Patient seen and examined prior to discharge. Physical assessment as noted below. Patient is stable for discharge with follow up recommendations as noted above. This patient was seen by JACKY Ulloa under the supervision of Dr. Gruber. - Physical Exam Vitals/I&O's: Vital Signs Temp Pulse Resp BP Pulse Ox 98.2 F 64 19 H 121/56 H 98 06/27/20 06:00 06/27/20 10:43 06/27/20 10:43 06/27/20 10:43 06/27/20 10:43 Oxygen Delivery Method Room Air Weight: 267 lb 13.786 oz Body Mass Index (BMI) 33.5 Intake and Output for Last 24 Hours 06/25/20 06/26/20 06/27/20 23:59 23:59 23:59 Intake Total 94.50 / 94.50 Output Total 525 / 525 Balance -430.50 / -430.50 General: Alert, Oriented x3, Cooperative HEENT: Atraumatic, PERRLA, EOMI, Normocephalic Neck: Supple, No JVD, Negative Carotid Bruits Lungs: Clear to auscultation, Normal air movement Cardiovascular: Regular rate, No murmurs Abdomen: Bowel Sounds Present, Soft, Non Tender Extremities: No clubbing, No cyanosis, No edema, Capillary Refill Less than 3 Seconds Skin: No rashes, No breakdown, - - Midsternal postop incision intact. Musculoskeletal: No Tenderness to Palpation of Joints or Extremities Neurological: Cranial nerves II-XII grossly intact, Neuro grossly intact Psych/Mental Status: Normal Affect, Appropriate Laboratory Results 06/26/20 21:42: WBC 6.7, RBC 4.08 L, Hgb 10.9 L, Hct 34.1 L, MCV 83.6, MCH 26.7 L, MCHC 32.0, RDW Std Deviation 42.4, RDW Coeff of Gayathri 13.8, Plt Count 165, MPV 9.6, Immature Gran % (Auto) 0.300, Neut % (Auto) 70.2 H, Lymph % (Auto) 18.0 L, [place] % (Auto) 8.5, Eos % (Auto) 2.7, Baso % (Auto) 0.3, Absolute Neuts (auto) 4.7, Absolute Lymphs (auto) 1.20, Nucleated RBC % 0 06/26/20 21:42: Sodium 138, Potassium 4.2, Chloride 106, Carbon Dioxide 27.0, Anion Gap 5, BUN 19 H, Creatinine 1.17, Estim Creat Clear Calc 73.23, Est GFR (MDRD) Af Amer 80, Est GFR (MDRD) Non-Af 66, BUN/Creatinine Ratio 16.2, Glucose 112 H, Calcium 9.0, Troponin I 0.926 H* 06/27/20 00:45: Magnesium 2.0 06/27/20 00:45: Troponin I 0.885 H* 06/27/20 03:46: WBC 6.0, RBC 3.76 L, Hgb 10.1 L, Hct 31.6 L, MCV 84.0, MCH 26.9 L, MCHC 32.0, RDW Std Deviation 42.4, RDW Coeff of Gayathri 13.7, Plt Count 143 L, MPV 8.9, Immature Gran % (Auto) 0.500, Neut % (Auto) 63.1, Lymph % (Auto) 23.0, [place] % (Auto) 9.2, Eos % (Auto) 3.7, Baso % (Auto) 0.5, Absolute Neuts (auto) 3.8, Absolute Lymphs (auto) 1.37, Nucleated RBC % 0 06/27/20 03:46: Sodium 138, Potassium 3.8, Chloride 105, Carbon Dioxide 28.0, Anion Gap 5, BUN 17, Creatinine 1.09, Estim Creat Clear Calc 78.60, Est GFR (MDRD) Af Amer 87, Est GFR (MDRD) Non-Af 72, BUN/Creatinine Ratio 15.6, Glucose 117 H, Calcium 8.6, Total Bilirubin 0.40, AST 30, ALT 40, Alkaline Phosphatase 60, Total Protein 6.2 L, Albumin 2.7 L, Globulin 3.5, Albumin/Globulin Ratio 0.8 L 06/27/20 03:46: Troponin I 0.794 H* Current Medications Acetaminophen (Tylenol) 650 mg PO Q6H PRN PRN PRN Reason: Pain Score 1-10/Temp > 100.7 F Al Hydroxide/Mg Hydroxide (Mylanta Ii) 30 ml PO Q6H PRN PRN PRN Reason: Gastric Burning Aspirin (Ecotrin) 81 mg PO DAILY [facility] Last Admin: 06/27/20 09:20 Dose: 81 mg Documented by: Atorvastatin Calcium (Lipitor) 20 mg PO QHS [facility] Enoxaparin Sodium (Lovenox) 120 mg SC Q12 [facility] Last Admin: 06/27/20 09:16 Dose: Not Given Documented by: Hydralazine HCl (Apresoline Iv) 10 mg IV Q4H PRN PRN PRN Reason: SBP > 160 Sodium Chloride () 250 mls @ 15 mls/hr IV .[id number] PRN PRN Reason: Saline Flush Sodium Chloride () 250 mls @ 15 mls/hr IV .[id number] PRN PRN Reason: Additional IVPB Infusion Diltiazem HCl 125 mg/ Dextrose 125 mls @ 5 mls/hr IV .Q25H [facility]; Protocol Last Titration: 06/27/20 10:43 Dose: 5 mg/hr, 5 mls/hr Documented by: Magnesium Hydroxide (Milk Of Magnesia) 30 ml PO DAILY PRN PRN PRN Reason: Constipation Melatonin (Melatonin) 3 mg PO QHS PRN PRN PRN Reason: INSOMNIA Morphine Sulfate () 2 mg IV Q3H PRN PRN PRN Reason: Pain Score 6-10/10 Nitroglycerin (Nitrostat) 0.4 mg SUBLINGUAL Q5M PRN PRN Reason: CARDIAC/CHEST PAIN Ondansetron HCl (Zofran) 4 mg IV Q8H PRN PRN PRN Reason: NAUSEA/VOMITING Oxycodone HCl (Oxyir) 5 mg PO Q4H PRN PRN PRN Reason: Pain Score 4-5/10 Prochlorperazine Edisylate (Compazine Iv) 5 mg IV Q4H PRN PRN PRN Reason: Breakthrough Nausea/Vomiting Psyllium Hydrophilic Mucilloid (Metamucil) 1 packet PO DAILY PRN PRN PRN Reason: Constipation Senna/Docusate Sodium (Senokot-S, Lore-Colace) 2 tablet PO BID PRN PRN PRN Reason: Constipation Sodium Chloride () 10 - 40 ml IV UD PRN PRN Reason: SALINE FLUSH Discharge Diet: Low fat/ Low Cholesterol Discharge Activity: Return to Normal Activity Call your doctor if you observe: Shortness of breath, Dizziness, Fainting spells, Chest pain, Increased palpitations (irregular heartbeat) Home Medications: Medications to take at Discharge aspirin 81 mg tablet,delayed release 81 mg PO DAILY 12/18/18 cqvewysl-noq-umema acid 0.4 mg-lycopene 300 mcg-lutein 250 mcg tablet 1 tab PO DAILY 12/18/18 probiotic PO DAILY 12/18/18 zinc 50 mg tablet 50 mg PO DAILY 12/18/18 ergocalciferol (vitamin D2) 62.5 mcg (2,500 unit) capsule 1,000 unit PO DAILY 12/24/18 Ramipril 5 mg PO DAILY 06/26/20 Rosuvastatin Calcium 10 mg PO QHS 06/26/20 Rivaroxaban [Xarelto] 20 mg PO DAILY #30 tab 06/27/20 Following Prescriptions Were Given to Patient: Rivaroxaban [Xarelto] 20 mg PO DAILY #30 tab Transmission Status: Received by [id number] Primary Care Physician: Rachelle Morejon MD [Primary Care Provider] - Please follow up with your Primary Care Physician in: 1 Week Please Follow Up With: Primary Minister Assistant/[facility] cardio surgery When: Within one week or as scheduled Disposition: Home Minutes spent on discharge:: 35 Patient Condition:: Stable Medical Necessity - Tobacco Use Smoking Status: Never smoker Tobacco Use: Secondhand Meaningful Use Info Meaningful Use Diagnoses (Choose all that apply): None applicable <Toby Gruber - Last Filed: 06/27/20 11:26> Discharge Date and Diagnosis - Secondary Discharge Diagnosis Chronic Problems: Chronic Problems (Last Reviewed 08/20/19 @ 16:01 by Geetha Busch) History of mitral valve repair (Chronic) Personal history of pulmonary embolism (Chronic 02/25/08) Right ventricular hypertrophy (Chronic) Per echo 12/11/2018 Bilateral enlargement of atria (Chronic) Nonrheumatic mitral (valve) insufficiency (Chronic) Moderate (2+) per echo 12/11/2018. EF 60%.RVSP 29mm hg. Personal history of other venous thrombosis and embolism (Chronic 02/25/08) History of hypertension (Chronic) Improved with diet and exercise, currently on no meds per Dr. Morejon OV 11/21/2018 Hyperlipidemia (Chronic) Hospital Course and Treatment Summary of Care Provided: This patient was seen in conjunction with JACKY Ulloa . I have independently interviewed and examined the patient and reviewed pertinent historical, laboratory, and other data. Please refer to JACKY Ulloa note for details of this patient's presentation, findings, and recommendations. I have reviewed JACKY Ulloa note and concur with documented findings. In brief, patient 65-year-old gentleman who underwent mitral valve repair at [facility] on 06/22/2020 discharged on 06/26/2020 presented to the emergency department after his iPhone alerted him of being tachycardic. Presented to the emergency department was found to be in a atrial flutter/A. fib started on Cardizem drip and admitted to regular nursing floor with consultation placed to cardiology Hospital course: As documented above - Physical Exam Vitals/I&O's: Vital Signs Temp Pulse Resp BP Pulse Ox 98.2 F 61 20 H 119/52 L 95 06/27/20 06:00 06/27/20 11:15 06/27/20 11:15 06/27/20 11:15 06/27/20 11:15 Oxygen Delivery Method Room Air Weight: 121.5 kg Body Mass Index (BMI) 33.5 Intake and Output for Last 24 Hours 06/25/20 06/26/20 06/27/20 23:59 23:59 23:59 Intake Total 97.25 / 97.25 Output Total 525 / 525 Balance -427.75 / -427.75 Laboratory Results 06/26/20 21:42: WBC 6.7, RBC 4.08 L, Hgb 10.9 L, Hct 34.1 L, MCV 83.6, MCH 26.7 L, MCHC 32.0, RDW Std Deviation 42.4, RDW Coeff of Gayathri 13.8, Plt Count 165, MPV 9.6, Immature Gran % (Auto) 0.300, Neut % (Auto) 70.2 H, Lymph % (Auto) 18.0 L, [place] % (Auto) 8.5, Eos % (Auto) 2.7, Baso % (Auto) 0.3, Absolute Neuts (auto) 4.7, Absolute Lymphs (auto) 1.20, Nucleated RBC % 0 06/26/20 21:42: Sodium 138, Potassium 4.2, Chloride 106, Carbon Dioxide 27.0, Anion Gap 5, BUN 19 H, Creatinine 1.17, Estim Creat Clear Calc 73.23, Est GFR (MDRD) Af Amer 80, Est GFR (MDRD) Non-Af 66, BUN/Creatinine Ratio 16.2, Glucose 112 H, Calcium 9.0, Troponin I 0.926 H* 06/27/20 00:45: Magnesium 2.0 06/27/20 00:45: Troponin I 0.885 H* 06/27/20 03:46: WBC 6.0, RBC 3.76 L, Hgb 10.1 L, Hct 31.6 L, MCV 84.0, MCH 26.9 L, MCHC 32.0, RDW Std Deviation 42.4, RDW Coeff of Gayathri 13.7, Plt Count 143 L, MPV 8.9, Immature Gran % (Auto) 0.500, Neut % (Auto) 63.1, Lymph % (Auto) 23.0, [place] % (Auto) 9.2, Eos % (Auto) 3.7, Baso % (Auto) 0.5, Absolute Neuts (auto) 3.8, Absolute Lymphs (auto) 1.37, Nucleated RBC % 0 06/27/20 03:46: Sodium 138, Potassium 3.8, Chloride 105, Carbon Dioxide 28.0, Anion Gap 5, BUN 17, Creatinine 1.09, Estim Creat Clear Calc 78.60, Est GFR (MDRD) Af Amer 87, Est GFR (MDRD) Non-Af 72, BUN/Creatinine Ratio 15.6, Glucose 117 H, Calcium 8.6, Total Bilirubin 0.40, AST 30, ALT 40, Alkaline Phosphatase 60, Total Protein 6.2 L, Albumin 2.7 L, Globulin 3.5, Albumin/Globulin Ratio 0.8 L 06/27/20 03:46: Troponin I 0.794 H* Current Medications Acetaminophen (Tylenol) 650 mg PO Q6H PRN PRN PRN Reason: Pain Score 1-10/Temp > 100.7 F Al Hydroxide/Mg Hydroxide (Mylanta Ii) 30 ml PO Q6H PRN PRN PRN Reason: Gastric Burning Aspirin (Ecotrin) 81 mg PO DAILY [facility] Last Admin: 06/27/20 09:20 Dose: 81 mg Documented by: Atorvastatin Calcium (Lipitor) 20 mg PO QHS [facility] Enoxaparin Sodium (Lovenox) 120 mg SC Q12 [facility] Last Admin: 06/27/20 09:16 Dose: Not Given Documented by: Hydralazine HCl (Apresoline Iv) 10 mg IV Q4H PRN PRN PRN Reason: SBP > 160 Sodium Chloride () 250 mls @ 15 mls/hr IV .[id number] PRN PRN Reason: Saline Flush Sodium Chloride () 250 mls @ 15 mls/hr IV .[id number] PRN PRN Reason: Additional IVPB Infusion Diltiazem HCl 125 mg/ Dextrose 125 mls @ 5 mls/hr IV .Q25H [facility]; Protocol Last Titration: 06/27/20 11:16 Dose: 0 mg/hr, 0 mls/hr Documented by: Magnesium Hydroxide (Milk Of Magnesia) 30 ml PO DAILY PRN PRN PRN Reason: Constipation Melatonin (Melatonin) 3 mg PO QHS PRN PRN PRN Reason: INSOMNIA Morphine Sulfate () 2 mg IV Q3H PRN PRN PRN Reason: Pain Score 6-10/10 Nitroglycerin (Nitrostat) 0.4 mg SUBLINGUAL Q5M PRN PRN Reason: CARDIAC/CHEST PAIN Ondansetron HCl (Zofran) 4 mg IV Q8H PRN PRN PRN Reason: NAUSEA/VOMITING Oxycodone HCl (Oxyir) 5 mg PO Q4H PRN PRN PRN Reason: Pain Score 4-5/10 Prochlorperazine Edisylate (Compazine Iv) 5 mg IV Q4H PRN PRN PRN Reason: Breakthrough Nausea/Vomiting Psyllium Hydrophilic Mucilloid (Metamucil) 1 packet PO DAILY PRN PRN PRN Reason: Constipation Senna/Docusate Sodium (Senokot-S, Lore-Colace) 2 tablet PO BID PRN PRN PRN Reason: Constipation Sodium Chloride () 10 - 40 ml IV UD PRN PRN Reason: SALINE FLUSH Inpatient E&M: [id number] Disch Hosp
== END 2020-06-27 12:31 | disposition home or self-care (01) | DRG 309 ==
LOC: ED 22:06 → PCU 23:43
PROVIDERS: Admitting Provider Family Medicine; Emergency Provider Emergency Medicine; PCP Internal Medicine; Referring Provider Family Medicine; Visit Provider Internal Medicine
DX: I48.92 Unspecified atrial flutter (principal); I49.3 Ventricular premature depolarization; I24.8 Other forms of acute ischemic heart disease; I48.0 Paroxysmal atrial fibrillation; I10 Essential (primary) hypertension; E78.5 Hyperlipidemia, unspecified; J45.909 Unspecified asthma, uncomplicated; Z86.711 Personal history of pulmonary embolism
CPT/HCPCS: 71045; 80048; 80053; 83735; 84484; 85025; 93005; 99251; 99283; A4216; G0463

== ENCOUNTER → 2020-11-25 10:31 | Outpatient (CLI) | payer MEDICARE, SELFPAY ==
[2020-06-27 00:22] VITALS: BMI 33.5
--- NOTE | 2020-11-25 10:58 | CT_ITS ---
STUDY: CT BRAIN WITHOUT CONTRAST REASON FOR EXAM: Male, 65 years old. DIZZINESS X FEW MONTHS RADIATION DOSAGE (If Supplied By Facility): CTDIvol = ( 44.99 ) mGy, DLP = ( 829.85 ) mGycm TECHNIQUE: Transaxial CT imaging of the brain was performed without administration of intravenous contrast material. Individualized dose optimization techniques were used for this CT. COMPARISON: No relevant priors. FINDINGS: Normal soft tissue structures. Normal calvarium. Normal size ventricles and extra-axial spaces for the patient''s age. Normal white matter tracts of the cerebral hemispheres. Normal basal ganglia and thalami. Normal brainstem. Normal cerebellum. There is no intracranial hemorrhage. There are no findings of an acute ischemic infarction. Normal visualized paranasal sinuses. CT/Brain/Head without Contrast IMPRESSION: Normal unenhanced CT scan of the brain. Electronically Signed: Gentry Birmingham MD at 11:10 EST Tel , Service support ,
== END ==
PROVIDERS: PCP Internal Medicine; Referring Provider Internal Medicine; Visit Provider Internal Medicine
DX: G45.9 Transient cerebral ischemic attack, unspecified (principal)
CPT/HCPCS: 70450

== ENCOUNTER 2021-10-26 15:40 | Outpatient (CLI) | payer MEDICARE, SELFPAY | END 2021-10-26 23:59 | disposition short-term general hospital (02) | LOC: LABSPEC 15:42 | PROVIDERS: PCP Internal Medicine; Visit Provider Internal Medicine | DX: J02.9 Acute pharyngitis, unspecified (principal) | CPT/HCPCS: 87635; U0003; U0005 ==

== ENCOUNTER → 2022-08-24 | Outpatient (CLI) | payer MEDICARE, SELFPAY ==
[2022-08-24 16:50] LABS: PSA,Total- Diagnostic 3.96 ng/mL (0.0-4.0)
== END | disposition home or self-care (01) ==
LOC: LAB 15:54
PROVIDERS: PCP Internal Medicine; Referring Provider Urology; Visit Provider Urology
DX: R97.20 Elevated prostate specific antigen [PSA] (principal)
CPT/HCPCS: 36415; 84153

== ENCOUNTER → 2023-01-09 | Outpatient (CLI) | payer MEDICARE, SELFPAY | END | disposition home or self-care (01) | LOC: SL 11:23 | PROVIDERS: PCP Internal Medicine; Visit Provider Internal Medicine | DX: G47.10 Hypersomnia, unspecified (principal); I10 Essential (primary) hypertension; E66.9 Obesity, unspecified; R06.83 Snoring | CPT/HCPCS: 95806 ==

== ENCOUNTER → 2023-02-27 | Outpatient (CLI) | payer MEDICARE, SELFPAY | END | disposition home or self-care (01) | LOC: SL 10:26 | PROVIDERS: PCP Internal Medicine; Visit Provider Nurse Practitioner Acute Care | DX: Z46.89 Encounter for fitting and adjustment of other specified devices (principal) ==

== ENCOUNTER → 2023-08-30 | Outpatient (CLI) | payer MEDICARE, SELFPAY ==
[2023-08-30 16:22] LABS: Bacteria 0 SEEN /hpf (None Seen); Mucous, Urine 0 SEEN /hpf (<or=2+); Red Blood Cells-Urine 0 SEEN /hpf (0-5); Squamous Epithelial Cells - UA 0 SEEN /hpf (0-5)
[2023-08-30 16:44] LABS: Color, Urine Yellow (Yellow); Glucose, Dipstick Normal (Normal); Ketone-Dipstick Negative (Negative); Leukocyte Esterase-Dipstick 25 /ul (Negative); Nitrite-Dipstick Negative (Negative); Occult Blood-Urine 25 /ul (Negative); Protein-Dipstick Negative (Negative); Urine Bilirubin Dipstick Negative (Negative); Urine Clarity Clear (Clear); Urine Urobilinogen Normal (Normal)
[2023-08-30 17:03] LABS: White Blood Cells 0-5 SEEN /hpf (0-5)
== END | disposition home or self-care (01) ==
LOC: LABSPEC 16:11
PROVIDERS: PCP Internal Medicine; Referring Provider Nurse Practitioner; Visit Provider Nurse Practitioner
DX: R31.21 Asymptomatic microscopic hematuria (principal)
CPT/HCPCS: 81001

== ENCOUNTER → 2023-09-03 | Outpatient (CLI) | payer MEDICARE, SELFPAY | END | disposition home or self-care (01) | LOC: MTLAB 08:38 | PROVIDERS: PCP Internal Medicine; Referring Provider Nurse Practitioner; Visit Provider Nurse Practitioner | DX: Z12.5 Encounter for screening for malignant neoplasm of prostate (principal) | CPT/HCPCS: 36415; 84153; G0103 ==

== ENCOUNTER → 2023-09-19 | Outpatient (CLI) | payer MEDICARE, SELFPAY ==
--- NOTE | 2023-09-19 16:08 | CT_ITS ---
INDICATION: ELEVATED PSA EXAMINATION: CT ABDOMEN AND PELVIS WITH AND WITHOUT CONTRAST - CT Abdomen And Pelvis WO/W Contrast Injection TECHNIQUE: Helically acquired images were obtained of the abdomen and pelvis both before and after IV contrast. A radiation dose optimization technique was used for this scan. IV Contrast dosage and agent: 100 mL of Isovue-300 Oral contrast: None. RADIATION DOSAGE (If Supplied By Facility): CTDIvol = ( 49.55 ) mGy, DLP = ( 4576.89 ) mGycm COMPARISON: No relevant prior comparison study available FINDINGS: LOWER CHEST: Lung bases are clear. No cardiomegaly or pericardial effusion. Coronary artery calcifications. Epicardial pacer wires noted. LIVER: Homogeneous. There is a cyst along the inferior margin of the right lobe of the liver. No additional mass.. GALLBLADDER AND BILIARY TREE: No calcified gallstones. No gallbladder distension or wall edema. No intra- or extrahepatic biliary ductal dilation. PANCREAS: No focal cystic or solid mass. SPLEEN: Normal size without focal cystic or solid mass. ADRENAL GLANDS: Normal right adrenal gland. 1.6 and meter left adrenal gland nodule consistent with a lipid rich adenoma. No follow-up recommended. KIDNEYS AND URETERS: Normal renal size and position. No hydronephrosis. Simple right renal cyst. No specific follow-up recommended. Symmetric excretion on the delayed acquisition. PERITONEUM: No ascites or free air. No other fluid collection. BOWEL: The appendix is not definitively seen. No stomach or bowel distension. No focal inflammatory change. LYMPH NODES: No enlarged mesenteric or retroperitoneal lymph nodes. VESSELS: Aorta is non-dilated. Mild atherosclerotic calcification. URINARY BLADDER: Unremarkable. REPRODUCTIVE ORGANS: Enlarged prostate which measures 7 cm transverse. The seminal vesicles are unremarkable. ABDOMINAL WALL: Small fat-containing bilateral inguinal hernias. Small fat-containing umbilical hernia. BONES: No lytic or blastic abnormality. Moderate degenerative changes throughout the spine. Mild degenerative changes in the hips. CT/CT Abd/Pelvis W/WO Contrast IMPRESSION: Prostatomegaly. No lymphadenopathy. No acute finding in the abdomen or pelvis. Electronically Signed: Jaden Taveras MD at 19:41 EST ,
[2023-09-19 16:33] LABS: CREATININE FINGERSTICK 1.2 mg/dL (0.70-1.30); EGFR FINGERSTICK > 60.0000 mL/min (>60)
== END | disposition home or self-care (01) ==
PROVIDERS: PCP Internal Medicine; Referring Provider Urology; Visit Provider Urology
DX: R97.20 Elevated prostate specific antigen [PSA] (principal); R31.0 Gross hematuria
CPT/HCPCS: 74178; Q9967

== ENCOUNTER → 2024-04-03 | Outpatient (CLI) | payer MEDICARE, SELFPAY ==
[2024-04-03 11:20] LABS: ALB/GLOB Ratio 1.1 RATIO (0.9-2.4); AST(SGOT) 18 U/L (15-37); Alanine Aminotransfer ALT/SGPT 22 U/L (16-61); Albumin, Serum 3.5 g/dL (3.2-5.0); Alkaline Phosphatase 89 U/L (45-117); Anion Gap 8 (5-15); BUN 19 mg/dL (7-18); BUN/Creat Ratio 18.8 RATIO (10-20); Chloride 108 mmol/L (98-107); Cholesterol 98 mg/dL (200); Creatinine, Serum 1.01 mg/dL (0.70-1.30); EST Glomerular Filtration Rate 77 mL/min (>60); Est Glom Filt Rate - Afr Amer 94 mL/min (>60); Globulin 3.2 g/dL (2.2-4.2); Glucose 111 mg/dL (74-106); High Density Lipoprotein 46 mg/dL; Potassium 4.3 mmol/L (3.5-5.1); Protein, Total 6.7 g/dL (6.4-8.2); Sodium Level 142 mmol/L (136-145); Triglycerides 124 mg/dL; Very Low Density Lipoprotein 25 mg/dL (5-40)
== END | disposition home or self-care (01) ==
LOC: MTLAB 08:43
PROVIDERS: PCP Internal Medicine; Referring Provider Internal Medicine; Visit Provider Internal Medicine
DX: E78.00 Pure hypercholesterolemia, unspecified (principal)
CPT/HCPCS: 36415; 80053; 80061

== ENCOUNTER → 2024-05-06 | Outpatient (CLI) | payer MEDICARE, SELFPAY | END | disposition home or self-care (01) | LOC: SL 09:25 | PROVIDERS: PCP Internal Medicine; Referring Provider Nurse Practitioner Acute Care; Visit Provider Nurse Practitioner Acute Care | DX: G47.33 Obstructive sleep apnea (adult) (pediatric) (principal) | CPT/HCPCS: 98960; G0463 ==

== ENCOUNTER 2024-10-26 13:30 | Emergency (ER) | payer MEDICARE, SELFPAY ==
[2024-10-26 13:31] VITALS: BP 150/80; PULSE 77; RESP 18; TEMP 36.2; O2SAT 98; BMI 31.2
--- NOTE | 2024-10-26 13:58 | RAD_ITS ---
INDICATION: laceration EXAMINATION/TECHNIQUE: X-RAY - LEFT HAND XR Fingers Min 2 Views 3 VIEWS COMPARISON: April 26, 2021 FINDINGS: SOFT TISSUES: No soft tissue swelling or gas. No radiopaque foreign body. BONES/JOINTS: No acute fracture or subluxation.. Normal alignment. Preservation of the joint space.. No sclerotic or destructive changes observed. RAD/Finger(s) Min 2 Views IMPRESSION: No acute osseous injury. Electronically Signed: Mica Rodriguez MD at 14:53 EST ,
--- NOTE | 2024-10-26 14:04 | EX.ED.GENINJ ---
HPI <DANIA Figueredo - Last Filed: 10/26/24 14:58> History of Present Illness Chief Complaint: Laceration Narrative Narrative: 69-year-old male cut his left thumb with a sharp knife. He cut the tip of his nail which is still attached. He ran it under cold water and states it started to bleed more. He is not on blood thinners. Last tetanus unknown. PFSH <DANIA Figueredo - Last Filed: 10/26/24 14:58> REPLACED BY [facility] Medical History Derangement of right knee Atrial flutter with rapid ventricular response Elevated coronary artery calcium score Personal history of pulmonary embolism (02/25/08) Right ventricular hypertrophy Bilateral enlargement of atria Nonrheumatic mitral (valve) insufficiency Elevated C-reactive protein (CRP) Low back pain Allergic rhinitis Personal history of other venous thrombosis and embolism (02/25/08) Enlarged prostate Hematuria History of hypertension Hyperlipidemia Home Medications ?Medication ?Instructions ?Recorded ?Last Taken ?Type aspirin 81 mg tablet,delayed 81 mg PO DAILY heart health 12/18/18 06/26/20 History release (Adult Aspirin Regimen) yxlasowg-yvu-pygiu acid 0.4 1 tab PO DAILY supplement 12/18/18 06/26/20 History mg-lycopene 300 mcg-lutein 250 mcg tablet (Centrum Silver) probiotic PO DAILY 12/18/18 Unknown History zinc 50 mg tablet 50 mg PO DAILY prostate health 12/18/18 Unknown History cholecalciferol (vitamin D3) 10 10 mcg PO DAILY 01/01/23 Unknown History mcg (400 unit) capsule mv-mn-folic 200 mcg-vit K 15 cap PO 01/01/23 Unknown History mcg-lutein 5 mg-zeaxanthin 1 mg capsule (PreserVision AREDS 2 Plus Multivit) omega 9-sde-rra-fish oil 300 1 cap PO DAILY 01/01/23 Unknown History mg-1,000 mg capsule (Fish Oil) tadalafil 5 mg tablet 5 mg PO 01/01/23 Unknown History vitamin B complex (B 1 tab PO DAILY 01/01/23 Unknown History Complex-Vitamin B12 tablet) rosuvastatin 10 mg tablet 10 mg PO DAILY 01/26/23 Unknown History methimazole 5 mg tablet 5 mg PO QDAY 05/01/24 Unknown History semaglutide 1 mg/dose (4 mg/3 mL) mg subcut 05/01/24 Unknown History subcutaneous pen injector (Ozempic) Allergy/AdvReac Type Severity Reaction Status Date / Time No Known Allergies Allergy Verified 10/26/24 13:31 Family History Brother Thyroid disorder Brother Thyroid disorder Mother , Hx smoking Thyroid disorder Ovarian cancer Lung cancer Sister Thyroid disorder Father , Smoker Lung cancer Prostate cancer CAD (coronary artery disease), Onset Age: 50 Surgical History History of mitral valve repair History of tooth extraction Social History Smoking Status: Never smoker alcohol intake: current alcohol intake frequency: 0-2 drinks per day Alcohol type: beer and wine ROS <DANIA Figueredo - Last Filed: 10/26/24 14:58> ROS ED ROS Narrative Neuro: Negative for motor or sensory function. Skin: Positive for laceration. Musc: Negative for joint pain. EXAM <DANIA Figueredo - Last Filed: 10/26/24 14:58> Physical Exam Narrative Exam Narrative: CONST: Patient sitting in no acute distress. EYES: Normal inspection. EXTREMITIES: Linear laceration angled across the distal tip of his left thumb male with the distal sliver still attached and approximated. No laceration to the skin around the nail. No active bleeding. NEURO: Alert and answering questions appropriately. PSYCH: Normal affect. Const Vital Signs: 10/26/24 13:31 Temperature 97.1 F L Temperature Source Temporal Pulse Rate 77 Respiratory Rate 18 Blood Pressure 150/80 H Blood Pressure Mean 103 Pulse Ox 98 Oxygen Delivery Method Room Air <Jordan Chacon MD - Last Filed: 10/26/24 15:12> Physical Exam Const Vital Signs: 10/26/24 13:31 Temperature 97.1 F L Temperature Source Temporal Pulse Rate 77 Respiratory Rate 18 Blood Pressure 150/80 H Blood Pressure Mean 103 Pulse Ox 98 Oxygen Delivery Method Room Air MDM <DANIA Figueredo - Last Filed: 10/26/24 14:58> MDM MDM Narrative Medical decision making narrative: 69-year-old male has a laceration on the distal aspect of the left thumbnail. Distal sliver of nail is still attached. The patient was concerned it was still oozing blood. Bleeding stopped with direct pressure. There is no subungual hematoma. There is no laceration of the skin requiring repair and he has full range of motion is neurovascular intact. X-ray shows no osseous involvement. I discussed with him that since the location is the very distal tip of his nail that it would likely do more harm than benefit to remove the nail and see if any distal nailbed needs repaired. I offered glue or closure with Steri-Strips and he chose the latter. Steri-Strips and bulky bandage were applied, tetanus updated, and wound care instructions given. He was discharged in stable condition. ED attending interpretation of the left thumb x-ray shows no fracture or dislocation. Radiography Diagnostic Testing: Clinical Impression(s) from Imaging Studies Finger X-Ray 10/26/24 13:58 IMPRESSION: No acute osseous injury. Electronically Signed: Mica Rodriguez MD at 14:53 EST , <Jordan Chacon MD - Last Filed: 10/26/24 15:12> MDM Radiography Diagnostic Testing: Clinical Impression(s) from Imaging Studies Finger X-Ray 10/26/24 13:58 IMPRESSION: No acute osseous injury. Electronically Signed: Mica Rodriguez MD at 14:53 EST , Treatment and Re-Evaluation Narrative: Dr. Chacon: I have personally performed a face to face assessment of the patient and have reviewed the JANA Note. I performed a substantive portion of the visit including all aspects of the following. My castellon findings include: History is laceration to tip of left thumb with sharp knife, trying to cut frozen food. Exam is afebrile. Vital signs noted. Focused physical examination shows laceration to tip of left thumb with sliver of nail involved. Medical Decision Making: Check x-rays. X-rays interpreted by myself showed no osseous abnormality. I reviewed the radiology report which confirms my independent interpretation. Update tetanus. Through shared decision making, closure with Steri-Strip instead of nailbed removal for tiny portion of nail/nailbed laceration. I find this reasonable. Disposition is discharge in stable condition. Other additions or changes: [None] Discharge Plan Triage Chief Complaint: Laceration ED Midlevel Provider: Darby Lomax ED Provider: Jordan Chacon Dx/Rx/DC Orders Clinical Impression: Laceration of left thumb with damage to nail Instructions: ED Laceration Extremity Prescriptions: No Action aspirin [Adult Aspirin Regimen] 81 mg tablet,delayed release (DR/EC) 81 mg PO DAILY probiotic PO DAILY Centrum Silver 0.4-300-250 mg-mcg-mcg tablet 1 tab PO DAILY zinc 50 mg tablet 50 mg PO DAILY vitamin B complex [B Complex-Vitamin B12] Tablet 1 tab PO DAILY omega 8-cty-uhx-fish oil [Fish Oil] 300-1,000 mg capsule 1 cap PO DAILY tadalafil 5 mg tablet 5 mg PO Patient Comments: take 1 tablet by mouth once daily cholecalciferol (vitamin D3) 10 mcg (400 unit) capsule 10 mcg PO DAILY PreserVision AREDS 2 Plus MV 200 mcg-15 mcg- 5 mg-1 mg capsule PO rosuvastatin 10 mg tablet 10 mg PO DAILY Ozempic 1 mg/dose (4 mg/3 mL) pen injector subcut methimazole 5 mg tablet 5 mg PO QDAY Primary Care Provider: Rachelle Morejon Referrals: Rachelle Morejon MD [Primary Care Provider] - Activity Restrictions/Additional Instructions: The steri strips are there to keep the sliver of nail attached. You can replace them daily and cover with a bulky dressing until healed. Print Language: Slovak Disposition Disposition: Home, Self Care
[2024-10-26] MEDS: Diphth,Pertuss(Acell),Tet Vac 0.5 ML Vial IM (14:13)
[2024-10-26 15:12] VITALS: BP 150/80; PULSE 77; RESP 18; TEMP 36.2; O2SAT 98
== END 2024-10-26 15:13 | disposition home or self-care (01) ==
PROVIDERS: Emergency Provider Emergency Medicine; PCP Internal Medicine; Referring Provider Emergency Medicine; Visit Provider Emergency Medicine
DX: S61.112A Laceration without foreign body of left thumb with damage to nail, initial encounter (principal); Z23 Encounter for immunization; X58.XXXA Exposure to other specified factors, initial encounter; Z86.711 Personal history of pulmonary embolism
CPT/HCPCS: 73140; 90471; 90715; 99282

== ENCOUNTER → 2025-01-01 | Outpatient (CLI) | payer MEDICARE, SELFPAY ==
--- NOTE | 2025-01-01 15:29 | RAD_ITS ---
PROCEDURE: KNEE 4 OR MORE VIEWS (RADKN), 01/01/2025 REASON FOR EXAM: KNEE INTERNAL DERANGEMENT TECHNIQUE: AP, lateral, AP tunnel, and sunrise views of the RIGHT knee were obtained. COMPARISON: 01/01/2023 FINDINGS: Tunnel view limited by superimposition of a structure of uncertain significance obscuring majority of the femur. Fracture/dislocation: No acute appearing fracture identified. Similar old posttraumatic deformity of the proximal fibula. Joint space(s): Mild loss of medial and patellofemoral compartment joint space with small patellofemoral osteophytes. Soft tissues: Likely joint effusion. Atherosclerosis. Foreign bodies: None visible. Bone mineralization: Demineralization. Other: None. RAD/Knee 4 or More Views IMPRESSION: 1. Demineralization without visible acute displaced fracture. 2. Mild radiographically evident osteoarthritis and a suspected joint effusion. 3. Additional description as above. Reading Location: [id number]
== END | disposition home or self-care (01) ==
LOC: MTRAD 15:27
PROVIDERS: PCP Internal Medicine; Referring Provider Internal Medicine; Visit Provider Internal Medicine
DX: M23.91 Unspecified internal derangement of right knee (principal)
CPT/HCPCS: 73564

== ENCOUNTER → 2025-01-23 | Outpatient (CLI) | payer MEDICARE, SELFPAY ==
--- NOTE | 2025-01-23 08:01 | CDU_ITS ---
Reason For Study Reason For Study: Stenosis Rt. Velocities/BP Lt. Velocities/BP Prox CCA 101.6/17.5 cm/sec. Prox CCA 90.4/16.7 cm/sec. Mid CCA 76.0/14.6 cm/sec. Mid CCA 81.8/16.7 cm/sec. Dist CCA 57.6/14.6 cm/sec. Dist CCA 74.4/16.7 cm/sec. Prox ICA 45.0/13.8 cm/sec. Prox ICA 49.7/15.7 cm/sec. Mid ICA 64.8/19.5 cm/sec. Mid ICA 57.2/18.5 cm/sec. Dist ICA 69.9/22.6 cm/sec. Dist ICA 84.2/25.3 cm/sec. Rt. ICA/CCA = 0.9. Lt. ICA/CCA = 1.0. Prox ECA 83.0/9.3 cm/sec. Prox ECA 125.3/15.7 cm/sec. Rt. Vert. 40.2/9.5 cm/sec. Lt. Vert. 56.0/13.0 cm/sec. Right Extracranial There is intimal thickening but no significant atherosclerotic plaque noted in the right common carotid artery. There is heterogeneous, irregular atherosclerotic plaque noted in the right internal carotid artery. There is intimal thickening but no significant atherosclerotic plaque noted in the right external carotid artery. Antegrade flow is noted in the right vertebral artery. Left Extracranial There is heterogeneous, irregular atherosclerotic plaque noted in the left common carotid artery. There is heterogeneous, irregular atherosclerotic plaque noted in the left internal carotid artery. The atherosclerotic plaque causes acoustic shadowing. There is heterogeneous, irregular atherosclerotic plaque noted in the left external carotid artery. Antegrade flow is noted in the left vertebral artery. Procedure Carotid Duplex [id number]. This is a Carotid Duplex examination using B-mode, color flow and specral Doppler. Exam performed in department. VL/Carotid Duplex Ultrasound Interpretation Summary Mild (<50%) stenosis right extracranial internal carotid. Mild (<50%) stenosis left extracranial internal carotid. Patent and antegrade vertebrals bilaterally. Ordering Physician: Rachelle Morejon Referring Physician: Rachelle Morejon Performed By: Nirmala Miller RVT
== END | disposition home or self-care (01) ==
LOC: CVS 07:59
PROVIDERS: PCP Internal Medicine; Referring Provider Internal Medicine; Visit Provider Internal Medicine
DX: I25.10 Atherosclerotic heart disease of native coronary artery without angina pectoris (principal); I65.23 Occlusion and stenosis of bilateral carotid arteries
CPT/HCPCS: 93880

== ENCOUNTER → 2025-06-29 | Outpatient (CLI) | payer MEDICARE, SELFPAY ==
[2025-06-29 10:21] LABS: Hematocrit 40.7 % (40-54); Hemoglobin 13.3 g/dL (13.0-16.5); Immature Granulocytes Count 0.010 X10^3/uL (0.0-0.0); Mean Corp Hgb Conc 32.7 g/dL (32-36); Mean Corpuscular Volume 84.3 fL (80-94); Mean Platelet Vol. 9.2 fl (6.2-12.0); NRBC Flagged by Analyzer 0 % (0-5); Platelet Count 160 K/mm3 (150-450); RBC Distribution Width CV 14.0 % (11.6-14.6); RBC Distribution Width SD 43.2 fl (35.1-43.9); Red Blood Count 4.83 M/mm3 (4.6-6.2); White Blood Count 4.2 K/mm3 (4.4-11.0)
[2025-06-29 10:31] LABS: Creatinine, Urine (random) 146.00 mg/dL (39.00-259.00); Microalbumin,Random Urine 12.4 mg/L (<20 mg/L)
[2025-06-29 10:53] LABS: AST(SGOT) 23 U/L (<=37); Alanine Aminotransfer ALT/SGPT 15 U/L (<=46); Albumin, Serum 4.0 g/dL (3.4-4.8); Alkaline Phosphatase 77 U/L (40-129); Anion Gap 8 (5-15); BUN 21 mg/dL (4-19); BUN/Creat Ratio 19.3 RATIO (10-20); Calcium,Total 9.2 mg/dL (7.6-11.0); Carbon Dioxide 26.7 mmol/L (21.0-32.0); Chloride 105 mmol/L (98-108); Globulin 2.5 g/dL (2.2-4.2); Glucose 103 mg/dL (70-99); Potassium 4.6 mmol/L (3.3-5.1)
== END | disposition home or self-care (01) ==
LOC: MTLAB 08:29
PROVIDERS: PCP Internal Medicine; Referring Provider Internal Medicine; Visit Provider Internal Medicine
DX: I25.10 Atherosclerotic heart disease of native coronary artery without angina pectoris (principal); E05.90 Thyrotoxicosis, unspecified without thyrotoxic crisis or storm
CPT/HCPCS: 36415; 80053; 82043; 82570; 84443; 85025

== ENCOUNTER → 2025-10-01 | Outpatient (CLI) | payer MEDICARE, SELFPAY ==
[2025-10-01 15:14] LABS: PSA,Total - Annual Screen 6.56 ng/mL (0.02-4.00)
== END | disposition home or self-care (01) ==
PROVIDERS: PCP Internal Medicine; Referring Provider Urology; Visit Provider Urology
DX: Z12.5 Encounter for screening for malignant neoplasm of prostate (principal)
CPT/HCPCS: 36415; 84153; G0103